=== PATIENT | female | born 1975 | race Caucasian/White ===

== ENCOUNTER 2018-10-12 06:33 | Day surgery (SDC) | payer BC ==
[2018-10-12] VITALS (9 sets, daily range): BP systolic 120–149; BP diastolic 76–97
[~2018-10-12] VITALS: Ht 162.6 cm; Wt 81.6 kg
[~2018-10-12 06:33] MED LIST: NKM
[2018-10-12] MEDS ORDERED: Propofol 1,000mg/ 100ml btl IV ONE (07:00)
[2018-10-12] MEDS ORDERED: cefOXitin Sod 1 GM in D5W 55 ML IVPB ONE (07:00)
[2018-10-12] MEDS ORDERED: Silver Nitrate Stick TOPIC ONE ×2 (07:17→07:45)
[2018-10-12] MEDS ORDERED: Lidocaine 1% Plain 30 ml INJ ONE ×2 (07:18→07:37)
[2018-10-12] MEDS ORDERED: LR 1000ml 1,000 ML IVLG SCH (07:32)
[2018-10-12] MEDS ORDERED: cefOXitin 1gm Inj ONE (07:34)
--- NOTE | 2018-10-12 07:34 | Anethesia Preoperative Eval ---
Anesthesia Pre-op PMH/ROS General Date of Evaluation: October 12, 2018 Time of Evaluation: 08:41 Anesthesiologist: Nikole ASA Score: ASA 2 Mallampati Score Class I : Soft palate, uvula, fauces, pillars visible Class II: Soft palate, uvula, fauces visible Class III: Soft palate, base of uvula visible Class IV: Only hard plate visible Mallampati Classification: Class I Surgeon: Arthur Diagnosis: Abd Pain Surgical Procedure: Hysteroscopy, LEEP, D&C, Resection of Fibroids Anesthesia History: none Family History: no anesthesia problems Allergies: Coded Allergies: No Known Allergies (Unverified , 10/09/18) Medications: see eMAR Patient NPO?: Yes Past Medical History Other: obesity - BMI 32 Anesthesia Pre-op Phys. Exam Physician Exam Last Vital Signs Date Time Temp Pulse Resp B/P (MAP) Pulse Ox O2 Delivery O2 Flow Rate FiO2 10/12/18 07:10 98.1 68 20 120/80 98 Room Air Constitutional: NAD Neurologic: CN 2-12 intact Cardiovascular: RRR Respiratory: CTA Gastrointestinal: S/NT/ND Airway Exam Mallampati Score: Class I MO: full ROM: full Teeth: missing, intact Anesthesia Pre-op A/P Labs Urine Test Test 10/12/18 06:45 Urine HCG, Qualitative Negative (NEGATIVE) Risk Assessment & Plan Assessment: ASA 2 Plan: GA, SED, GlideScope Go Status Change Before Surgery: No Pre-Antibiotics Dru Gram Cefoxitin IV Given Within 1 Hr of Incision: Yes Time Given: 09:01 Darius Agustin MD October 12, 2018 07:34
[2018-10-12] MEDS ORDERED: Dexamethasone 4mg/ml vial ONE (07:38)
[2018-10-12] MEDS ORDERED: Lidocaine 1% MPF 10mg/ml 5ml ONE (07:38)
[2018-10-12] MEDS ORDERED: Sodium Chloride 10ml vial INJ ONE (07:38)
[2018-10-12] MEDS ORDERED: fentaNYL 100 mcg/2 mL IV PRN (07:45)
[2018-10-12] MEDS: [UNRECOGNIZED DRUG - OTHER] TOPIC ONE ×2 (07:45→09:00)
[2018-10-12] MEDS ORDERED: Labetalol 5mg/ml 20ml vial IV PRN (07:45)
[2018-10-12] MEDS ORDERED: DiphenhydrAMINE 50mg/ml Inj IVP PRN ×2 (07:45→09:00)
[2018-10-12] MEDS ORDERED: oxyCODONE HCL/Acetaminophen 5/325mg ORAL PRN (07:45)
[2018-10-12] MEDS ORDERED: Hydromorphone 0.5mg/0.5ml inj IVP PRN (07:45)
[2018-10-12] MEDS ORDERED: LORazepam Inj 2mg/ml 1ml IV PRN (07:45)
[2018-10-12] MEDS ORDERED: Ferric Subsulfate (Monsel's Soln) 30ml TOPIC ONE (07:45)
[2018-10-12] MEDS ORDERED: Ketorolac 30mg Inj IV PRN ×2 (07:45)
[2018-10-12] MEDS: POTASSIUM IODIDE TOPIC ONE ×2 (07:45→09:00)
[2018-10-12] MEDS ORDERED: Atropine Sulfate 0.4mg/ml inj IVP PRN (07:45)
[2018-10-12] MEDS ORDERED: Metoclopramide 10mg/2ml Inj IVP PRN (07:45)
[2018-10-12] MEDS ORDERED: Meperidine 50mg/ml Inj(FOR RIGORS ONLY) IVP PRN (07:45)
[2018-10-12] MEDS ORDERED: Midazolam 2mg/2ml Inj IVP PRN (07:45)
[2018-10-12] MEDS ORDERED: HYDROcodone/Acetamin 5/325 tab ORAL PRN ×2 (07:45→09:00)
[2018-10-12] MEDS ORDERED: HYDROcodone/Acetamin 7.5/325 tab ORAL PRN (07:45)
--- NOTE | 2018-10-12 07:56 | Immediate Post-Op Evaluation ---
Immediate Post-Op Evalulation Immediate Post-Op Evalulation Procedure: Hysteroscopy, LEEP, D&C, Resection of Fibroids Date of Evaluation: October 12, 2018 Time of Evaluation: 10:25 IV Fluids: 900 LR Blood Products: 0 Estimated Blood Loss: 40 Urinary Output: 0 Blood Pressure Systolic: 146 Blood Pressure Diastolic: 95 Pulse Rate: 86 Respiratory Rate: 16 O2 Sat by Pulse Oximetry: 98 Temperature (Fahrenheit): 97.5 Pain Score (1-10): 2 Nausea: No Vomiting: No Complications 0 Patient Status: awake, reacts, patent, extubated, none Hydration Status: adequate Dru Gram Cefoxitin IV Given Within 1 Hr of Incision: Yes Time Given: 09:01 Darius Agustin MD October 12, 2018 07:56
[2018-10-12] MEDS ORDERED: LR 1000ml ONE (08:00)
[2018-10-12] MEDS ORDERED: Acetaminophen (Non formulary) 100 ML IV ONE (08:00)
[2018-10-12] MEDS ORDERED: Sterile Water Irrig 1000ml IRRIG ONE (08:00)
[2018-10-12] MEDS ORDERED: Rocuronium Bromide 50mg/5ml Inj IV ONE (08:00)
[2018-10-12] MEDS ORDERED: NS Irrig 1000ml ONE (08:00)
--- NOTE | 2018-10-12 08:47 | Pre-Procedure Note/Attestation ---
Pre-Procedure Note/Attestation Complete Prior to Procedure Planned Procedure: not applicable Procedure Narrative: Hysteroscopy, dilation and curettage, resection of submucous fibroid, LEEP procedure Indications for Procedure Pre-Operative Diagnosis: persistent mild- moderate dysplasia, submucous fibroid, metromenorrhagia Attestation I attest that I discussed the nature of the procedure; its benefits; risks and complications; and alternatives (and the risks and benefits of such alternatives ), prior to the procedure, with the patient (or the patient's legal tax representative). I attest that, if there was a reasonable possibility of needing a blood transfusion, the patient (or the patient's legal tax representative) was given the [place] [employer] [facility] [employer] [facility] standardized written summary, pursuant to the [place] Blood Safety Act ([place] Health and Safety Code # 1645, as amended). I attest that I re-evaluated the patient just prior to the surgery and that there has been no change in the patient's H&P, except as documented below: Marissa Gibson MD October 12, 2018 08:47
[2018-10-12] MEDS ORDERED: HYDROmorphone 1mg/ml Carpuject SUBQ PRN (09:00)
[2018-10-12] MEDS ORDERED: D5 1/2NS 1,000 ML IV SCH (09:00)
[2018-10-12] MEDS ORDERED: Sorbitol 2000ml Irrigation IRRIG ONE (09:00)
[2018-10-12] MEDS ORDERED: Tylenol #3 tab (300mg/30mg) ORAL PRN (09:00)
--- NOTE | 2018-10-12 09:51 | 48 Hour Post Anesthesia Eval ---
Post Anesthesia Evaluation Procedure: Hysteroscopy, LEEP, D&C, Resection of Fibroids Date of Evaluation: October 12, 2018 Time of Evaluation: 12:43 Blood Pressure Systolic: 138 0: 67 Pulse Rate: 74 Respiratory Rate: 18 Temperature (Fahrenheit): 98.2 O2 Sat by Pulse Oximetry: 98 Airway: patent Nausea: No Vomiting: No Pain Intensity: 2 Hydration Status: adequate Cardiopulmonary Status: Stable Mental Status/LOC: patient returned to baseline Follow-up Care/Observations: 0 Post-Anesthesia Complications: 0 Follow-up care needed: ready to discharge Darius Agustin MD October 12, 2018 09:51
[2018-10-12] MEDS ORDERED: Glycopyrrolate 0.2mg/ml 1ml Vial ONE (09:54)
--- NOTE | 2018-10-12 09:58 | Brief Operative Note ---
Immediate Post Operative Note Operative Note Pre-op Diagnosis: persistent mild- moderate dysplasia, submucous fibroid, metromenorrhagia Procedure: resection of submucous fibroid/ hysteroscopy/ dilation and curettage/ LEEP Post-op Diagnosis: same Surgeon: MD Katey Anesthesiologist: Emanuel Anesthesia: general Specimen: yes - uterine curettings/ emc/ecc/ ant/ post leep and core Complications: none Condition: stable Fluids: crystalloid and sorbitol -100 c deficit Estimated Blood Loss: minimal - 50cc Drains: none Implant(s) used?: No Marissa Gibson MD October 12, 2018 09:58
--- NOTE | 2018-10-12 20:45 | Operative Note - Dictated ---
DATE OF OPERATION: 10/12/2018 PREOPERATIVE DIAGNOSES: Persistent [id number] dysplasia, heavy uterine bleeding, and submucous fibroid. PROCEDURE: Resection of submucous fibroid, hysteroscopy, dilation and curettage, and LEEP procedure. ANESTHESIA: General. SURGEON: Marissa Gibson M.D. ANESTHESIOLOGIST: Darius Agustin M.D. ESTIMATED BLOOD LOSS: 50 mL. COMPLICATIONS: None. FLUID DEFICIT: 100 mL of Sorbitol PROCEDURE IN DETAIL: After ensuring informed consent, the patient was taken to the operating room where general anesthesia was induced. The patient was sterilely prepped and draped. Weighted speculum was placed in the vagina. Cervix was dilated to 10 Hegar dilator. Resectoscope was placed inside the uterine cavity. Uterine cavity was distended with sorbitol. The submucosal fibroid was observed that was broad, but only approximately 10% to 20% into the uterine cavity. Next, resectoscope was withdrawn. First curettage was performed. Next, a dilute solution of Pitressin approximately 5 units was injected into the uterus and next part of the fibroid protruding into the uterine cavity was shaved off. Excellent hemostasis was assured with rollerball. Next, attention was turned to the cervix where LEEP was performed on the settings of 50 and 50 with about a 15 mm loop. First posterior LEEP was done and then anterior LEEP and then the Core was resected after this ECC was performed. Excellent hemostasis was assured with the Bovie. At the end of the procedure, all instrument and lap counts were correct x2. All the specimens were sent to pathology. There was 100 mL sorbitol deficit. The patient was stable and transported to the recovery area breathing on her own. Marissa Gibson M.D. DR: Clarence JOB#: [id number] CC: [email or web address]
== END 2018-10-12 12:25 | disposition home or self-care (01) ==
LOC: SUR 06:33
DX: N87.1 Moderate cervical dysplasia (principal); N93.8 Other specified abnormal uterine and vaginal bleeding; D25.0 Submucous leiomyoma of uterus; E66.9 Obesity, unspecified; Z68.30 Body mass index [BMI] 30.0-30.9, adult
CPT/HCPCS: 57461; 58558; 81025; J0694; J1100; J2001; J2250; J2405; J2704; J3010; 94003; 94150